=== PATIENT | male | born 1950 | race Caucasian/White ===

== ENCOUNTER 2019-07-11 22:26 | Inpatient (IN) | payer OTHER ==
[2019-07-11] MEDS ORDERED: Sodium Chloride 0.9% 10 ML Syringe FLUSH PRN (22:54)
--- NOTE | 2019-07-11 23:04 | EDM.PDOC ---
ED HPI GENERAL MEDICAL PROBLEM - General Chief Complaint: Respiratory Problem Stated Complaint: SOB Time Seen by Provider: 07/11/19 22:50 Source of Information: Reports: Patient, EMS History Limitations: Reports: Other (no old records) - History of Present Illness INITIAL COMMENTS - FREE TEXT/NARRATIVE: 69 yo male visiting from [place] presents from a resort near [place] for cough, fever, and SOB. EMS gave a couple of nebs and oxygen and he is modestly improved on arrival. Has been taking antipyretics for fever control. Is alone on vacation here. Was returning home in 2 days, but doesn't feel up to it. Smoked in the past, but is not a current smoker. Has meds prescribed for AODM and his breathing, but doesn't take any of it ever. Onset: Gradual Onset Date: 07/04/19 Duration: Week(s): (1), Getting Worse Location: Reports: Chest Quality: Reports: Other (no pain reported) Severity: Severe Improves with: Reports: Medication Worsens with: Reports: Other (time) Context: Reports: Other (See HPI) Associated Symptoms: Reports: Cough, Fever/Chills, Shortness of Breath. 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 Treatments, See EMS Report - Related Data Allergies Allergy/AdvReac Type Severity Reaction Status Date / Time bupropion [From Wellbutrin] Allergy Hallucinati Verified 07/11/19 22:29 ons tolmetin [From Tolectin] Allergy Anaphylactic Verified 07/11/19 22:28 Shock Home Meds: Home Meds guaiFENesin [Mucinex] 1 tab PO BID PRN 07/11/19 [History] Past Medical History HEENT History: Reports: Other (See Below) Other HEENT History: abnormally small throat opening at one time Respiratory History: Reports: Bronchitis, Recurrent, COPD, Pneumonia, Recurrent Musculoskeletal History: Reports: Other (See Below) Other Musculoskeletal History: degenerative joint disease Psychiatric History: Reports: Depression Endocrine/Metabolic History: Reports: Diabetes, Type II, Obesity/BMI 30+ - Past Surgical History HEENT Surgical History: Reports: None Respiratory Surgical History: Reports: None Endocrine Surgical History: Reports: None Musculoskeletal Surgical History: Reports: None Social & Family History - Family History Family Medical History: Noncontributory - Tobacco Use Smoking Status *Q: Former Smoker Used Tobacco, but Quit: Yes Month/Year Tobacco Last Used: 1984 - Caffeine Use Caffeine Use: Reports: Coffee - Recreational Drug Use Recreational Drug Use: No ED ROS GENERAL - Review of Systems Review Of Systems: See Below Constitutional: Reports: Fever, Chills, Weakness HEENT: Reports: No Symptoms Respiratory: Reports: Shortness of Breath, Cough, Sputum, Hemoptysis. Denies: Wheezing, Pleuritic Chest Pain Cardiovascular: Reports: Dyspnea on Exertion Endocrine: Reports: No Symptoms GI/Abdominal: Reports: No Symptoms : Reports: No Symptoms Musculoskeletal: Reports: No Symptoms Skin: Reports: No Symptoms Neurological: Reports: No Symptoms Psychiatric: Reports: No Symptoms ED EXAM, GENERAL - Physical Exam Exam: See Below Exam Limited By: No Limitations General Appearance: Alert, WD/WN, Moderate Distress Eye Exam: Bilateral Eye: Normal Inspection Ears: Normal External Exam, Normal Canal, Hearing Grossly Normal, Normal TMs Ear Exam: Bilateral Ear: Auricle Normal, Canal Normal, TM normal Nose: Normal Inspection, No Blood Throat/Mouth: Normal Inspection, Normal Lips, Normal Oropharynx, Normal Voice, No Airway Compromise Head: Atraumatic, Normocephalic Neck: Normal Inspection Respiratory/Chest: Decreased Breath Sounds, Rhonchi, Wheezing, Accessory Muscle Use Cardiovascular: Regular Rate, Rhythm, No Edema, Tachycardia GI/Abdominal: Normal Bowel Sounds, Soft, Non-Tender, No Distention, Other ( protuberant). No: Tender Back Exam: Normal Inspection Extremities: Normal Inspection, Normal Range of Motion, Non-Tender, No Pedal Edema Neurological: Alert, Oriented, CN II-XII Intact, Normal Cognition, No Motor/ Sensory Deficits Psychiatric: Normal Affect, Normal Mood Skin Exam: Warm, Dry, Intact, Normal Color, No Rash Course - Vital Signs Text/Narrative:: Dr. Mosley called @ [id number] Last Recorded V/S: Last Vital Signs Temp 37.4 C 07/11/19 22:46 Pulse 94 07/11/19 22:46 Resp 24 H 07/11/19 22:46 BP 118/97 H 07/11/19 22:46 Pulse Ox 94 L 07/11/19 22:46 - Orders/Labs/Meds Orders: Active Orders 24 hr Category Date Time Status Oxygen Therapy Adult [Oxygen Therapy, ED] [] Care 07/11/19 22:55 Active ASDIRECTED RT Aerosol Therapy [RC] ASDIRECTED Care 07/11/19 23:15 Active Chest 2V [CR] Stat Exams 07/11/19 22:53 Taken CULTURE BLOOD [BC] Stat Lab 07/11/19 23:05 Received CULTURE BLOOD [BC] Stat Lab 07/11/19 23:40 Received UA W/MICROSCOPIC [URIN] Stat Lab 07/11/19 23:38 Ordered Sodium Chloride 0.9% [Normal Saline] 1,000 ml Med 07/11/19 23:45 Active IV ASDIRECTED Sodium Chloride 0.9% [Saline Flush] Med 07/11/19 22:54 Active 10 ml FLUSH ASDIRECTED PRN cefTRIAXone [Rocephin] 1 gm Med 07/11/19 23:37 Active Sodium Chloride 0.9% [Normal Saline] 50 ml IV ONETIME Saline Lock Insert [OM.PC] Routine Oth 07/11/19 22:54 Ordered Medication Orders Ceftriaxone Sodium 1 gm/ (Sodium Chloride) 50 mls @ 100 mls/hr IV ONETIME ONE Stop: 07/12/19 00:06 Sodium Chloride (Normal Saline) 1,000 mls @ 1,000 mls/hr IV ASDIRECTED MARINA Sodium Chloride (Saline Flush) 10 ml FLUSH ASDIRECTED PRN PRN Reason: Keep Vein Open Last Admin: 07/11/19 23:04 Dose: 10 ml Labs: Laboratory Tests 07/11/19 07/11/19 07/11/19 Range/Units 23:00 23:00 23:00 WBC 11.7 H (4.5-11.0) K/uL RBC 4.89 (4.30-5.90) M/uL Hgb 14.1 (12.0-15.0) g/dL Hct 41.9 (40.0-54.0) % MCV 86 (80-98) fL MCH 29 (27-31) pg MCHC 34 (32-36) % Plt Count 282 (150-400) K/uL Sodium 138 L (140-148) mmol/L Potassium 4.3 (3.6-5.2) mmol/L Chloride 101 (100-108) mmol/L Carbon Dioxide 24 (21-32) mmol/L Anion Gap 17.3 H (5.0-14.0) mmol/L BUN 16 (7-18) mg/dL Creatinine 1.1 (0.8-1.3) mg/dL Est Cr Clr Drug Dosing TNP Estimated GFR (MDRD) > 60 (>60) Glucose 312 H (74-106) mg/dL Lactic Acid 2.0 (0.4-2.0) mmol/L Calcium 8.8 (8.5-10.1) mg/dL Meds: Medications Generic Name Dose Route Start Last Admin Trade Name Freq PRN Reason Stop Dose Admin Ceftriaxone Sodium 1 gm/ 50 mls @ 100 mls/hr 07/11/19 23:37 Sodium Chloride IV 07/12/19 00:06 ONETIME ONE Sodium Chloride 1,000 mls @ 1,000 mls/hr 07/11/19 23:45 Normal Saline IV ASDIRECTED MARINA Sodium Chloride 10 ml 07/11/19 22:54 07/11/19 23:04 Saline Flush FLUSH 10 ml ASDIRECTED PRN Administration Keep Vein Open Discontinued Medications Generic Name Dose Route Start Last Admin Trade Name Freq PRN Reason Stop Dose Admin Albuterol 2.5 mg 07/11/19 23:15 07/11/19 23:32 Proventil Neb Soln NEB 07/11/19 23:16 2.5 mg ONETIME ONE Administration Azithromycin 500 mg 07/11/19 23:37 Zithromax PO 07/11/19 23:38 ONETIME ONE Lactated Ringer's 1,000 mls @ 1,000 mls/hr 07/11/19 23:35 Ringers, Lactated IV 07/12/19 00:34 BOLUS ONE - Radiology Interpretation Free Text/Narrative:: CXR-pneumonia Departure - Departure Time of Disposition: 23:50 Disposition: Admitted As Inpatient 65 Condition: Poor Clinical Impression: Elevated blood sugar Pneumonia Qualifiers: Pneumonia type: due to unspecified organism Laterality: bilateral Lung location : lower lobe of lung Qualified Code(s): J18.1 - Lobar pneumonia, unspecified organism COPD (chronic obstructive pulmonary disease) Qualifiers: COPD type: COPD with acute exacerbation Qualified Code(s): J44.1 - Chronic obstructive pulmonary disease with (acute) exacerbation - Discharge Information *PRESCRIPTION DRUG MONITORING PROGRAM REVIEWED*: No *COPY OF PRESCRIPTION DRUG MONITORING REPORT IN PATIENT ANTONIO: No Referrals: PCP,None [Primary Care Provider] - Forms: ED Department Discharge - My Orders Last 24 Hours: My Active Orders 07/11/19 22:53 Chest 2V [CR] Stat 07/11/19 22:54 Sodium Chloride 0.9% [Saline Flush] 10 ml FLUSH ASDIRECTED PRN Saline Lock Insert [OM.PC] Routine 07/11/19 22:55 Oxygen Therapy Adult [Oxygen Therapy, ED] [RC] ASDIRECTED 07/11/19 23:05 CULTURE BLOOD [BC] Stat 07/11/19 23:15 RT Aerosol Therapy [RC] ASDIRECTED 07/11/19 23:37 cefTRIAXone [Rocephin] 1 gm Sodium Chloride 0.9% [Normal Saline] 50 ml IV ONETIME 07/11/19 23:38 UA W/MICROSCOPIC [URIN] Stat 07/11/19 23:40 CULTURE BLOOD [BC] Stat 07/11/19 23:45 Sodium Chloride 0.9% [Normal Saline] 1,000 ml IV ASDIRECTED - Assessment/Plan Last 24 Hours: My Active Orders 07/11/19 22:53 Chest 2V [CR] Stat 07/11/19 22:54 Sodium Chloride 0.9% [Saline Flush] 10 ml FLUSH ASDIRECTED PRN Saline Lock Insert [OM.PC] Routine 07/11/19 22:55 Oxygen Therapy Adult [Oxygen Therapy, ED] [RC] ASDIRECTED 07/11/19 23:05 CULTURE BLOOD [BC] Stat 07/11/19 23:15 RT Aerosol Therapy [RC] ASDIRECTED 07/11/19 23:37 cefTRIAXone [Rocephin] 1 gm Sodium Chloride 0.9% [Normal Saline] 50 ml IV ONETIME 07/11/19 23:38 UA W/MICROSCOPIC [URIN] Stat 07/11/19 23:40 CULTURE BLOOD [BC] Stat 07/11/19 23:45 Sodium Chloride 0.9% [Normal Saline] 1,000 ml IV ASDIRECTED
[2019-07-11] MEDS ORDERED: Albuterol 0.083% 2.5 MG/3 ML Neb Soln NEB ONE (23:15)
[2019-07-11] MEDS ORDERED: Lactated Ringers 1,000 ML IV ONE (23:35)
[2019-07-11] MEDS ORDERED: cefTRIAXone 1 GM in Sodium Chloride 0.9% 50 ML IV ONE (23:37)
[2019-07-11] MEDS ORDERED: Azithromycin 250 MG Tab PO ONE (23:37)
[2019-07-11] MEDS ORDERED: Sodium Chloride 0.9% 1,000 ML IV SCH (23:45)
[2019-07-11] MEDS ORDERED: Acetaminophen 500 MG Tab PO ONE (23:52)
[2019-07-12] MEDS ORDERED: LORazepam 2 MG/ML SDV IVPUSH ONE ×2 (00:29→10:55)
[2019-07-12] MEDS ORDERED: Acetaminophen 325 MG Tab PO PRN (01:09)
[2019-07-12] MEDS ORDERED: Sodium Chloride 0.9% 1,000 ML IV SCH (01:15)
[2019-07-12] MEDS: Albuterol 0.083% 2.5 MG/3 ML Neb Soln NEB SCH ×3 (01:53→10:05)
[2019-07-12] MEDS: methylPREDNISolone Sodium Succinate 125 MG/2 ML SDV IVPUSH SCH ×2 (01:55→10:35)
--- NOTE | 2019-07-12 02:37 | HP ---
IDENTIFYING DATA: Tony Alvarado is a 69-year-old single male from [place], currently vacationing in the [place] area. CHIEF COMPLAINT: Shortness of breath and cough. HISTORY OF PRESENT ILLNESS: Adult retired gentleman reports a history of obstructive pulmonary disease secondary to previous tobacco use, though has refused maintenance respiratory therapy. He states he drove from his residence in [place] to the resort in [place] early last week, arriving on Friday with developing chest congestion and cough. Through the week, he had increasing congestion, chills, fever, malaise, shortness of breath, and episodes of purulent sputum production restricting activity. Subsequently, he had development of hemoptysis with worsening symptoms, failing to respond to use of guaifenesin and rest. The ambulance was contacted and he was transported to the emergency room for evaluation. Lab and x-ray revealed evidence of bilateral pneumonia. He is now admitted for inpatient therapy. He does report 2 years ago a hospitalization in a [place] facility for an acute pneumonic illness. He reports a previous history of tobacco use of 25 pack years, discontinuing approximately 25 years ago. [facility] have prescribed inhaled therapy, though he chooses not to use these. Additionally, he reports that he does not receive routine vaccinations. Denying recent Tdap, pneumococcal or influenza vaccines. PAST MEDICAL HISTORY: He has a reported history of type 2 diabetes. His [facility] physicians have advised pharmacologic treatment, though he has elected to forego treatment. Denies other chronic health problems including hypertension or documented cardiac disease. 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 No other surgical procedures reported. ALLERGIES: REPORTED TO BUPROPION AND TOLECTIN. CURRENT MEDICATIONS: None. HABITS: Tobacco, none currently with a [id number] history of use. Caffeine intake is heavy at 3 cups of coffee and 2 to 3, 2 L bottles of carbonated beverage daily. Alcohol use, denies. SOCIAL HISTORY: He is retired. Residing in his residence in [place]. He is unmarried. No immediate family is available. He is currently staying at a resort in [place] with anticipated return to his residence mid week this week. FAMILY HISTORY: Limited. Reports he has no children. His siblings are . Denies a history of recent contact with family members with chronic respiratory disease. REVIEW OF SYSTEMS: NEUROLOGIC: No history of strokes, seizures, focal weakness, glaucoma, or cataracts. He does have a history of depression with transient pharmacologic therapies. Additionally, he notes paresthesias and sensory loss in the feet secondary to diabetic state. CARDIAC: No history of hypertension, congenital heart disease, rheumatic fever, RI, chest pain, palpitations, or syncope. Several-year history of type 2 diabetes without pharmacologic therapies secondary to noncompliance. RESPIRATORY: Reports COPD, untreated; chronic mild shortness of breath with exertion. Current acute respiratory symptoms include cough, sputum production, hemoptysis, and fevers and chills. GI: Denies hepatitis, jaundice, gallbladder disease, chronic dyspepsia, or bowel changes including constipation, diarrhea or melena. : Nocturia x1. No history of chronic renal disease. No urinary incontinence. MUSCULOSKELETAL: Without complaints of arthralgias. Some lower extremity aching with involvement in softball this summer. PHYSICAL EXAMINATION: GENERAL: Appearance is that of an adult male appearing moderately distressed secondary to congestion, cough and shortness of breath. VITAL SIGNS: On admission, temperature 37.4 degrees centigrade, pulse 94, respiratory rate 24, blood pressure 118/97, and O2 saturations with supplemental oxygen at 4 L/min at 94%. HEENT: Hearing is intact with normal canals and TMs. Pupils reactive to light. Sclerae anicteric. Extraocular eye movements are intact. No nasal congestion. No oropharyngeal lesions or dental appliances. NECK: Brisk carotid pulses. No bruits, JVD, adenopathy, or thyromegaly. LUNGS: Moderately tachypneic. O2 saturations improved with supplemental O2. He has chronic coarse bilateral expiratory rhonchi and bilateral inspiratory rales. No retractions noted. No pleuritic rubs. HEART: Regular, tachycardic. No murmurs or gallops noted. ABDOMEN: Obese, nondistended. Active sounds. No organomegaly. No guarding, rebound, or referred pain. No CVA tenderness. Good femoral pulses. AND RECTAL: Exam omitted. EXTREMITIES: Warm and pink. Mild pitting edema at the ankles bilaterally. Brisk capillary refill. No cyanosis. LABORATORY DATA: On admission: WBC 11.7, hemoglobin 14.1, hematocrit 41.9, platelet count 282,000. Sodium 138, potassium 4.3, BUN 16, creatinine 1.1, glucose 312, lactic acid 2, calcium 8.8. PA and lateral chest x-ray: Bilateral generalized infiltrates noted. No focal area of consolidation. IMPRESSION: 1. Acute pneumonia. 2. Reported history of obstructive pulmonary disease without active treatment. 3. Type 2 diabetes. The patient refuses pharmacologic therapies as an outpatient. 4. Limited social contacts by patient report. PLAN: The patient will be admitted to the inpatient service for treatment of bilateral pneumonia. Blood and sputum cultures have been requested by the emergency room staff. We will provide broad-spectrum coverage with IV Rocephin and oral azithromycin. Additionally, oxygen supplementation, Tylenol, and albuterol bronchodilators are to be provided. We will monitor t.i.d. glucose checks with mealtime and administer Humalog on a sliding scale. Will require followup as an outpatient for ongoing management of diabetes and underlying respiratory disease. Did advise influenza and pneumococcal vaccines when acute respiratory illness has resolved, though held today. Full code status is implemented. Provide assistance with activity and consistent carbohydrate diet. Anticipated stay of 48 to 72 hours with transition to outpatient care when acute respiratory symptoms show interval improvement. Jorge Mosley MD /[id number]
--- NOTE | 2019-07-12 07:37 | CRLCR ---
Final Report: INDICATION: Cough shortness of breath TECHNIQUE: Chest radiograph 2 views COMPARISON: None FINDINGS: Mediastinum: The mediastinum is normal in appearance. The heart silhouette is normal in size and morphology. Lung: Mild airspace opacities are present bilaterally with Geraldine B-lines seen in the lower lung zones. No sign of pleural effusion seen. No pneumothorax is identified. Bone and Soft tissue: Unremarkable for age. IMPRESSION: 1. Mild airspace opacities are present bilaterally with Geraldine B-lines seen in the lower lung zones. Findings likely due to pulmonary edema. Dictated by Dajuan Julio MD @ 07/11/2019 11:32:24 PM Dictated by: Dajuan Julio MD @ 07/11/2019 23:32:30 (Electronic Signature) MTDD
[2019-07-12] MEDS ORDERED: Insulin Lispro 100 Unit/ML 3 ML KwikPen SUBCUT SCH (08:00)
[2019-07-12] MEDS ORDERED: Lactobacillus Rhamnosus GG (Probiotic) Cap PO SCH (09:00)
[2019-07-12] MEDS ORDERED: Lisinopril 10 MG Tab PO SCH (09:00)
[2019-07-12] MEDS ORDERED: Furosemide 40 MG/4 ML VIAL IVPUSH ONE (10:10)
[2019-07-12] MEDS ORDERED: Insulin Lispro 100 Unit/ML 3 ML KwikPen SUBCUT ONE (10:15)
--- NOTE | 2019-07-12 12:30 | PCM.DCSUM1 ---
Discharge Summary - Hospital Course Brief History: Mr. Alvarado is a 69-year-old gentleman was admitted through the emergency department with shortness of breath, cough, and hypoxia, secondary to bilateral pneumonia. - Discharge Data Discharge Date: 07/12/19 Discharge Disposition: DC/Tfer to Acute Hospital 02 Condition: Poor - Referral to Home Health Primary Care Physician: PCP None - Discharge Diagnosis/Problem(s) (1) Hypoxia SNOMED Code(s): 872827490 ICD Code: R09.02 - HYPOXEMIA Status: Acute Current Visit: Yes (2) Pneumonia SNOMED Code(s): 881139294 ICD Code: J18.9 - PNEUMONIA, UNSPECIFIED ORGANISM Status: Acute Current Visit: Yes Qualifiers: Pneumonia type: due to unspecified organism Laterality: bilateral Lung location: lower lobe of lung Qualified Code(s): J18.1 - Lobar pneumonia, unspecified organism (3) COPD (chronic obstructive pulmonary disease) SNOMED Code(s): 99427028 ICD Code: J44.9 - CHRONIC OBSTRUCTIVE PULMONARY DISEASE, UNSPECIFIED Status : Chronic Current Visit: Yes Qualifiers: COPD type: COPD with acute exacerbation Qualified Code(s): J44.1 - Chronic obstructive pulmonary disease with (acute) exacerbation (4) Type 2 diabetes mellitus SNOMED Code(s): 03652067 ICD Code: E11.9 - TYPE 2 DIABETES MELLITUS WITHOUT COMPLICATIONS Status: Chronic Current Visit: No - Patient Summary/Data Hospital Course: Mr. Alvarado is a 69-year-old gentleman who was admitted through the emergency department with cough, dyspnea, and hypoxia, secondary to bilateral pneumonia. He became ill approximately 5 days prior to admission with sweats and chills, shortness of breath, cough, and progressive dyspnea. He has a known history of COPD and is status post previous episodes of pulmonary infection. He also has a known history of underlying untreated type 2 diabetes mellitus. He typically follows at the OR in [place], reports that he has refused inhaler therapy as well as medications for management of his diabetes. On evaluation in the emergency department he had a chest x-ray that showed evidence of bilateral infiltrates with a modestly elevated white blood cell count. Cultures were obtained at the time of admission, he was given IV fluids and started on IV antibiotic therapy with azithromycin and ceftriaxone.He was also started on IV Solu-Medrol and nebulizer therapy. Through the night despite these interventions he showed evidence of progressive respiratory compromise with increased respiratory rate as well as sinus tachycardia. Blood gases were repeated and he was found to have a pH of 7.31. Respiratory rate had increased to 30 and he was found to be in a sinus tachycardia with a heart rate in the 120s. He was initially tried on noninvasive positive pressure ventilation which he had a hard time tolerating. Following this he was given 0.5 mg of lorazepam IV, with anxiolytic medication he was able to tolerate the BiPAP. Because do not have the ICU or intermediate level care bed available he will be transferred to [facility] in [facility] via [facility]. He did stabilize with use of noninvasive positive pressure ventilation, respiratory rate decreased to the mid 20s and heart rate came down to 100. He has been accepted in transfer by Dr. Medrano. Glucose levels were elevated likely secondary to his untreated type 2 diabetes mellitus as well as current therapy with Solu-Medrol. He was treated with sliding scale Humalog insulin. - Patient Instructions Diet: Usual Diet as Tolerated Activity: As Tolerated Other/Special Instructions: Transfer to [facility] via [facility] - Discharge Plan *PRESCRIPTION DRUG MONITORING PROGRAM REVIEWED*: No *COPY OF PRESCRIPTION DRUG MONITORING REPORT IN PATIENT ANTONIO: No Home Medications: Home Meds Albuterol [Proventil Neb Soln] 2.5 mg NEB Q4H neb 07/12/19 [Rx] Azithromycin [Zithromax] 250 mg PO DAILY@2200 tablet 07/12/19 [Rx] cefTRIAXone [Rocephin] 1 gm IV Q24H vial 07/12/19 [Rx] methylPREDNISolone Sod Succ [Solu-MEDROL] 62.5 mg IVPUSH Q8H sdv 07/12/19 [Rx] Oxygen Therapy Mode: BiPAP - Discharge Summary/Plan Comment DC Time >30 min.: No - Patient Data Vitals - Most Recent: Last Vital Signs Temp 95.7 F 07/12/19 11:00 Pulse 110 H 07/12/19 11:00 Resp 27 H 07/12/19 11:00 BP 161/71 H 07/12/19 11:00 Pulse Ox 98 07/12/19 11:00 Weight - Most Recent: 189 lb 6.4 oz I&O - Last 24 hours: Intake & Output 07/11/19 07/12/19 07/12/19 22:59 06:59 14:59 Intake Total 279 235 Output Total 1200 Balance 279 -965 Lab Results - Last 24 hrs: Laboratory Results - last 24 hr 07/11/19 07/11/19 07/11/19 Range/Units 23:00 23:00 23:00 WBC 11.7 H (4.5-11.0) K/uL RBC 4.89 (4.30-5.90) M/uL Hgb 14.1 (12.0-15.0) g/dL Hct 41.9 (40.0-54.0) % MCV 86 (80-98) fL MCH 29 (27-31) pg MCHC 34 (32-36) % Plt Count 282 (150-400) K/uL Neut % (Auto) (36-66) % Lymph % (Auto) (24-44) % [place] % (Auto) (2-6) % Eos % (Auto) (2-4) % Baso % (Auto) (0-1) % Puncture Site ABG pH (7.350-7.450) ABG pCO2 (35.0-42.0) mmHg ABG pO2 (75.0-100.0) mmHg ABG HCO3 (22.0-26.0) mmol/L ABG Total CO2 (23.0-27.0) mmol/L ABG O2 Saturation (95.0-98.0) % ABG O2 Content (15.0-23.0) %vol ABG Base Excess mm/L ABG Hemoglobin (13.5-18.0) g/dL ABG Oxyhemoglobin % ABG Carboxyhemoglobin (0.0-1.6) % ABG Methemoglobin % Sam Test O2 Delivery Device Oxygen Flow Rate L Sodium 138 L (140-148) mmol/L Potassium 4.3 (3.6-5.2) mmol/L Chloride 101 (100-108) mmol/L Carbon Dioxide 24 (21-32) mmol/L Anion Gap 17.3 H (5.0-14.0) mmol/L BUN 16 (7-18) mg/dL Creatinine 1.1 (0.8-1.3) mg/dL Est Cr Clr Drug Dosing TNP Estimated GFR (MDRD) > 60 (>60) Glucose 312 H (74-106) mg/dL Lactic Acid 2.0 (0.4-2.0) mmol/L Calcium 8.8 (8.5-10.1) mg/dL Troponin I (0.000-0.056) ng/mL NT-Pro-B Natriuret Pep (5-125) pg/mL Urine Color (YELLOW) Urine Appearance (CLEAR) Urine pH (5.0-8.0) Ur Specific [place] (1.008-1.030) Urine Protein (NEGATIVE) mg/dL Urine Glucose (UA) (NEGATIVE) mg/dL Urine Ketones (NEGATIVE) mg/dL Urine Occult Blood (NEGATIVE) Urine Nitrite (NEGATIVE) Urine Bilirubin (NEGATIVE) Urine Urobilinogen (0.2-1.0) EU/dL Ur Leukocyte Esterase (NEGATIVE) Urine RBC (0-5) Urine WBC (0-5) Ur Epithelial Cells Amorphous Sediment Urine Bacteria Urine Mucus 07/11/19 07/12/19 07/12/19 Range/Units 23:38 00:35 01:08 WBC (4.5-11.0) K/uL RBC (4.30-5.90) M/uL Hgb (12.0-15.0) g/dL Hct (40.0-54.0) % MCV (80-98) fL MCH (27-31) pg MCHC (32-36) % Plt Count (150-400) K/uL Neut % (Auto) (36-66) % Lymph % (Auto) (24-44) % [place] % (Auto) (2-6) % Eos % (Auto) (2-4) % Baso % (Auto) (0-1) % Puncture Site R brachial ABG pH 7.417 (7.350-7.450) ABG pCO2 31.2 L (35.0-42.0) mmHg ABG pO2 68.7 L (75.0-100.0) mmHg ABG HCO3 19.7 L (22.0-26.0) mmol/L ABG Total CO2 17.4 L (23.0-27.0) mmol/L ABG O2 Saturation 93.0 L (95.0-98.0) % ABG O2 Content 17.6 (15.0-23.0) %vol ABG Base Excess -3.3 mm/L ABG Hemoglobin 13.7 (13.5-18.0) g/dL ABG Oxyhemoglobin 91.0 % ABG Carboxyhemoglobin 1.3 (0.0-1.6) % ABG Methemoglobin 0.8 % Sam Test O2 Delivery Device Nasal cannula Oxygen Flow Rate 4 L Sodium (140-148) mmol/L Potassium (3.6-5.2) mmol/L Chloride (100-108) mmol/L Carbon Dioxide (21-32) mmol/L Anion Gap (5.0-14.0) mmol/L BUN (7-18) mg/dL Creatinine (0.8-1.3) mg/dL Est Cr Clr Drug Dosing Estimated GFR (MDRD) (>60) Glucose (74-106) mg/dL Lactic Acid (0.4-2.0) mmol/L Calcium (8.5-10.1) mg/dL Troponin I (0.000-0.056) ng/mL NT-Pro-B Natriuret Pep 376 H (5-125) pg/mL Urine Color Yellow (YELLOW) Urine Appearance Clear (CLEAR) Urine pH 5.5 (5.0-8.0) Ur Specific [place] 1.015 (1.008-1.030) Urine Protein 100 H (NEGATIVE) mg/dL Urine Glucose (UA) 500 H (NEGATIVE) mg/dL Urine Ketones 40 H (NEGATIVE) mg/dL Urine Occult Blood Negative (NEGATIVE) Urine Nitrite Negative (NEGATIVE) Urine Bilirubin Negative (NEGATIVE) Urine Urobilinogen 0.2 (0.2-1.0) EU/dL Ur Leukocyte Esterase Negative (NEGATIVE) Urine RBC 0-5 (0-5) Urine WBC 0-5 (0-5) Ur Epithelial Cells Few Amorphous Sediment Not seen Urine Bacteria Few Urine Mucus Not seen 07/12/19 07/12/19 07/12/19 Range/Units 01:10 08:56 08:56 WBC 14.4 H (4.5-11.0) K/uL RBC 4.47 (4.30-5.90) M/uL Hgb 12.9 (12.0-15.0) g/dL Hct 39.1 L (40.0-54.0) % MCV 88 (80-98) fL MCH 29 (27-31) pg MCHC 33 (32-36) % Plt Count 278 (150-400) K/uL Neut % (Auto) 93 H (36-66) % Lymph % (Auto) 3 L (24-44) % [place] % (Auto) 4 (2-6) % Eos % (Auto) 0 L (2-4) % Baso % (Auto) 0 (0-1) % Puncture Site ABG pH (7.350-7.450) ABG pCO2 (35.0-42.0) mmHg ABG pO2 (75.0-100.0) mmHg ABG HCO3 (22.0-26.0) mmol/L ABG Total CO2 (23.0-27.0) mmol/L ABG O2 Saturation (95.0-98.0) % ABG O2 Content (15.0-23.0) %vol ABG Base Excess mm/L ABG Hemoglobin (13.5-18.0) g/dL ABG Oxyhemoglobin % ABG Carboxyhemoglobin (0.0-1.6) % ABG Methemoglobin % Sam Test O2 Delivery Device Oxygen Flow Rate L Sodium 136 L (140-148) mmol/L Potassium 5.6 H (3.6-5.2) mmol/L Chloride 100 (100-108) mmol/L Carbon Dioxide 16 L (21-32) mmol/L Anion Gap 25.6 H (5.0-14.0) mmol/L BUN 18 (7-18) mg/dL Creatinine 1.2 (0.8-1.3) mg/dL Est Cr Clr Drug Dosing 47.96 Estimated GFR (MDRD) 60 (>60) Glucose 495 H* (74-106) mg/dL Lactic Acid (0.4-2.0) mmol/L Calcium 8.3 L (8.5-10.1) mg/dL Troponin I < 0.017 (0.000-0.056) ng/mL NT-Pro-B Natriuret Pep (5-125) pg/mL Urine Color (YELLOW) Urine Appearance (CLEAR) Urine pH (5.0-8.0) Ur Specific [place] (1.008-1.030) Urine Protein (NEGATIVE) mg/dL Urine Glucose (UA) (NEGATIVE) mg/dL Urine Ketones (NEGATIVE) mg/dL Urine Occult Blood (NEGATIVE) Urine Nitrite (NEGATIVE) Urine Bilirubin (NEGATIVE) Urine Urobilinogen (0.2-1.0) EU/dL Ur Leukocyte Esterase (NEGATIVE) Urine RBC (0-5) Urine WBC (0-5) Ur Epithelial Cells Amorphous Sediment Urine Bacteria Urine Mucus 07/12/19 Range/Units 09:03 WBC (4.5-11.0) K/uL RBC (4.30-5.90) M/uL Hgb (12.0-15.0) g/dL Hct (40.0-54.0) % MCV (80-98) fL MCH (27-31) pg MCHC (32-36) % Plt Count (150-400) K/uL Neut % (Auto) (36-66) % Lymph % (Auto) (24-44) % [place] % (Auto) (2-6) % Eos % (Auto) (2-4) % Baso % (Auto) (0-1) % Puncture Site Rt radial ABG pH 7.317 L (7.350-7.450) ABG pCO2 29.0 L (35.0-42.0) mmHg ABG pO2 78.9 (75.0-100.0) mmHg ABG HCO3 14.4 L (22.0-26.0) mmol/L ABG Total CO2 13.1 L (23.0-27.0) mmol/L ABG O2 Saturation 94.5 L (95.0-98.0) % ABG O2 Content 17.3 (15.0-23.0) %vol ABG Base Excess -10.1 mm/L ABG Hemoglobin 13.3 L (13.5-18.0) g/dL ABG Oxyhemoglobin 92.1 % ABG Carboxyhemoglobin 1.5 (0.0-1.6) % ABG Methemoglobin 1.0 % Sam Test Pass O2 Delivery Device Nasal cannula Oxygen Flow Rate L Sodium (140-148) mmol/L Potassium (3.6-5.2) mmol/L Chloride (100-108) mmol/L Carbon Dioxide (21-32) mmol/L Anion Gap (5.0-14.0) mmol/L BUN (7-18) mg/dL Creatinine (0.8-1.3) mg/dL Est Cr Clr Drug Dosing Estimated GFR (MDRD) (>60) Glucose (74-106) mg/dL Lactic Acid (0.4-2.0) mmol/L Calcium (8.5-10.1) mg/dL Troponin I (0.000-0.056) ng/mL NT-Pro-B Natriuret Pep (5-125) pg/mL Urine Color (YELLOW) Urine Appearance (CLEAR) Urine pH (5.0-8.0) Ur Specific [place] (1.008-1.030) Urine Protein (NEGATIVE) mg/dL Urine Glucose (UA) (NEGATIVE) mg/dL Urine Ketones (NEGATIVE) mg/dL Urine Occult Blood (NEGATIVE) Urine Nitrite (NEGATIVE) Urine Bilirubin (NEGATIVE) Urine Urobilinogen (0.2-1.0) EU/dL Ur Leukocyte Esterase (NEGATIVE) Urine RBC (0-5) Urine WBC (0-5) Ur Epithelial Cells Amorphous Sediment Urine Bacteria Urine Mucus CORA Results - Last 24 hrs: Microbiology 07/12/19 00:20 Gram Stain - Final Sputum - Expectorated Med Orders - Current: Current Medications Acetaminophen (Tylenol) 650 mg PO Q4H PRN PRN Reason: Pain Last Admin: 07/12/19 03:23 Dose: 650 mg Albuterol (Proventil Neb Soln) 2.5 mg NEB Q4H [facility] Last Admin: 07/12/19 10:05 Dose: 2.5 mg Azithromycin (Zithromax) 250 mg PO DAILY@2200 [facility] Ceftriaxone Sodium 1 gm/ (Sodium Chloride) 50 mls @ 100 mls/hr IV Q24H [facility] Sodium Chloride (Normal Saline) 1,000 mls @ 75 mls/hr IV ASDIRECTED [facility] Last Admin: 07/12/19 01:54 Dose: 75 mls/hr Insulin Human Lispro (Humalog) 0 unit SUBCUT TIDMEALS [facility]; Protocol Last Admin: 07/12/19 10:39 Dose: Not Given Lactobacillus Rhamnosus (Culturelle) 1 cap PO BID [facility] Lisinopril (Prinivil) 10 mg PO DAILY [facility] Last Admin: 07/12/19 10:33 Dose: Not Given Methylprednisolone Sodium Succinate (Solu-Medrol) 62.5 mg IVPUSH Q8H [facility] Last Admin: 07/12/19 10:35 Dose: 62.5 mg Discontinued Medications Acetaminophen (Tylenol Extra Strength) 1,000 mg PO ONETIME ONE Stop: 07/11/19 23:53 Last Admin: 07/12/19 00:03 Dose: 1,000 mg Albuterol (Proventil Neb Soln) 2.5 mg NEB ONETIME ONE Stop: 07/11/19 23:16 Last Admin: 07/11/19 23:32 Dose: 2.5 mg Azithromycin (Zithromax) 500 mg PO ONETIME ONE Stop: 07/11/19 23:38 Last Admin: 07/11/19 23:54 Dose: 500 mg Furosemide (Lasix) 40 mg IVPUSH NOW ONE Stop: 07/12/19 10:11 Last Admin: 07/12/19 10:27 Dose: 40 mg Lactated Ringer's (Ringers, Lactated) 1,000 mls @ 1,000 mls/hr IV BOLUS ONE Stop: 07/12/19 00:34 Last Admin: 07/12/19 02:55 Dose: Not Given Ceftriaxone Sodium 1 gm/ (Sodium Chloride) 50 mls @ 100 mls/hr IV ONETIME ONE Stop: 07/12/19 00:06 Last Admin: 07/12/19 00:05 Dose: 100 mls/hr Sodium Chloride (Normal Saline) 1,000 mls @ 1,000 mls/hr IV ASDIRECTED [facility] Last Admin: 07/11/19 23:56 Dose: 1,000 mls/hr Insulin Human Lispro (Humalog) 16 unit SUBCUT STAT ONE Stop: 07/12/19 10:16 Last Admin: 07/12/19 10:28 Dose: 16 unit Lorazepam (Ativan) 0.5 mg IVPUSH ONETIME ONE Stop: 07/12/19 00:30 Last Admin: 07/12/19 00:36 Dose: 0.5 mg Lorazepam (Ativan) 0.5 mg IVPUSH ONETIME ONE Stop: 07/12/19 10:56 Last Admin: 07/12/19 11:12 Dose: 0.5 mg Sodium Chloride (Saline Flush) 10 ml FLUSH ASDIRECTED PRN PRN Reason: Keep Vein Open Last Admin: 07/11/19 23:04 Dose: 10 ml - Exam Quality Assessment: Reports: Supplemental Oxygen General: Reports: Alert, Oriented, Moderate Distress Lungs: Reports: Rhonchi, Wheezing. Denies: Normal Respiratory Effort Cardiovascular: Reports: Regular Rhythm, No Murmurs, Tachycardia GI/Abdominal Exam: Soft, Non-Tender, No Organomegaly, No Distention Back Exam: Reports: Normal Inspection, Full Range of Motion Extremities: Non-Tender, No Pedal Edema
[2019-07-12] MEDS ORDERED: Azithromycin 250 MG Tab PO SCH (22:00)
[2019-07-12] MEDS ORDERED: cefTRIAXone 1 GM in Sodium Chloride 0.9% 50 ML IV SCH (22:00)
== END 2019-07-12 12:35 | DRG 194 ==
LOC: JP.ED 22:26 → JP.MS 07-12 01:09
PROVIDERS: ADMIT Family Medicine; ATTEND Hospitalist
PROC: 5A09357 Assistance with Respiratory Ventilation, Less than 24 Consecutive Hours, Continuous Positive Airway Pressure (ICD-10-PCS; principal; 2019-07-12)
DX: J18.1 Lobar pneumonia, unspecified organism (principal); J44.0 Chronic obstructive pulmonary disease with (acute) lower respiratory infection; J44.1 Chronic obstructive pulmonary disease with (acute) exacerbation; R06.02 Shortness of breath; R05 Cough; R50.9 Fever, unspecified; E11.9 Type 2 diabetes mellitus without complications; E66.9 Obesity, unspecified; R20.2 Paresthesia of skin; Z53.29 Procedure and treatment not carried out because of patient's decision for other reasons; Z79.899 Other long term (current) drug therapy; Z87.891 Personal history of nicotine dependence; Z88.8 Allergy status to other drugs, medicaments and biological substances
CPT/HCPCS: 36415 ×2; 36600; 71046; 80048; 81001; 82803; 83605; 83880; 85027; 87040 ×2; 87070; 87205; 94640; 96365; 96375; 99285; A9270 ×2; J0696; J2060; J7030; J7050; 82962; 84484; 85025; 94660; J1815; J1940; J2930